=== PATIENT | male | born 1970 | race Caucasian/White ===

== ENCOUNTER 2017-05-18 11:31 | Emergency (ER) | payer SELFPAY ==
[2017-05-18] MEDS ORDERED: FLUORESCEIN STRIP 1 MG/STRIP STRIP ONE (11:55)
[2017-05-18] MEDS ORDERED: TETRACAINE 0.5% OPHTH 15 ML BOTTLE ONE (11:56)
--- NOTE | 2017-05-18 12:33 | ER NURSING DOCUMENTATION ---
Nurse's Notes [facility] Name:Tanner Lima Age:47 yrs Sex:Male :1970 Arrival Date:05/18/2017 Time:11:31 Bed2 Private MD:No PCP, Identified Diagnosis:Eye Contusion Presentation: 05/18 11:33 Acuity: NIKI 4 rh 12:02 Presenting complaint: Patient states: Pt was leaning over into the shower and poked his rh eye on the shower faucet. Transition of care: Home. Mechanism of Injury: Poked in the eye. The patient denies any loss of vision. 12:02 Method Of Arrival: Private Vehicle rh Triage Assessment: 12:03 General: Appears in no apparent distress, Behavior is cooperative. Pain: Complains of rh pain in left eye. EENT: Eyes are tearing on inner aspect of conjunctiva of left eye. Neuro: Level of Consciousness is awake, alert, obeys commands. Historical: - Allergies: No known drug Allergies; - Home Meds: 1. None - PMHx: None; - PSHx: None; - Tetanus: < 10 years. - Ebola Screening: : Patient negative for fever greater than or equal to 101.5 degrees Fahrenheit, and additional compatible Ebola Virus Disease symptoms. - Immunization history: Flu Vaccine < 1 year. - Social history: Smoking status: Patient states former smoker of tobacco. Screenin:05 Infectious Disease Risk None. Abuse screen: Denies threats or abuse. Denies injuries rh from another. Nutritional screening: No deficits noted. Assessment: 12:04 See Triage Assessment done by same RN. rh Vital Signs: 11:50 BP 124 / 84; Pulse 57; Resp 16; Temp 97.9(O); Pulse Ox 93% on R/A; Weight 77.11 kg; rh Height 5 ft. 11 in. (180.34 cm); Pain 4/10; 11:50 Body Mass Index 23.71 (77.11 kg, 180.34 cm) rh Visual Acuity: 12:07 Left Eye Visual acuity 20/20, ; Right Eye Visual acuity 20/20, ; Both Eyes Visual rh acuity 20/20; Without Lenses; ED Course: 11:32 Patient arrived in ED. ds 11:33 Triage completed. rh 11:36 No PCP, Identified is Private Physician. ds 11:39 Richardson South MD is Attending Physician. tl1 11:50 Notified ED Physician of patient's arrival and chief complaint. Dr. South notified. rh 12:02 Annmarie Coy is Primary Nurse. rh 12:05 Valuables Remains with patient Patient has correct armband on for positive rh identification. Bed in low position. 12:24 Alexandre Harris MD is Referral Physician. tl1 Administered Medications: 11:50 Drug: Tetracaine Drops 0.5 % 1 drops; Route: Ophthalmic; Site: left eye; cb 12:19 Drug: Fluorescein Strip 1 strip; {Note: ADMIN BY DR SOUTH.} Route: Ophthalmic; Site: rh left eye; Outcome: 12:25 Discharge ordered by . tl1 12:32 Discharged to home ambulatory. 12:32 Condition: improved 12:32 Discharge Assessment: Patient awake, alert and oriented x 3. No cognitive and/or functional deficits noted. Patient verbalized understanding of disposition instructions. 12:32 Discharge instructions given to patient, Instructed on discharge instructions, follow up and referral plans. 12:32 Patient left the ED. 06 13:07 Discharge F/U Call: Spoke with: patient. other: Name: pt states he is feeling much st better today. pt has no questions or concerns. Signatures: Vibha Lees, SOLE RN Keara Caal RN RN st ot, Zuleyma, Reg Reg ds Richardson South MD MD tl1 Annmarie Coy
--- NOTE | 2017-05-18 12:33 | ER PHYSICIAN DOCUMENTATION ---
Physician Documentation [facility] Name:Tanner Lima Age:47 yrs Sex:Male :1970 Arrival Date:05/18/2017 Time:11:31 Bed2 Private MD:No PCP, Identified ED GegeyuliyaRichardson Disposition: 05/18 21:00 Chart complete. tl1 Disposition: 05/18/17 12:25 Discharged to Home/Self Care. Impression: Eye Contusion. - Condition is Good. - Discharge Instructions: CONTUSION, Eye. - Prescriptions for Klondike 5- 325 mg Oral Tablet - take 1 tablet by ORAL route every 6 hours As needed; 6 tablet. Acular 0.5 % Ophthalmic Drops - instill 1 drop by OPHTHALMIC route every 6 hours into affected eye(s); 5 milliliter. Zofran 4 mg Oral Tablet - take 1-2 tablet by ORAL route every 4-6 hours As needed; 10 tablet. - Medical Reconciliation form form. - Follow up: Alexandre Harris MD; When: 1 - 2 days; Reason: Recheck today's complaints. - Problem is new. - Symptoms have improved. HPI: 11:40 This 47 yrs old Male presents to ER with complaints of Eye Pain - LEFT. tl1 11:40 The patient sustained contusion. Onset: The symptom(s)/episode began/occurred suddenly, tl1 just prior to arrival. 12:06 He bent over to rinse his hair in the shower, stiking a shower fixture with his left tl1 eye. He had a fair amount of pain, but no change in his vision.. Historical: - Allergies: No known drug Allergies; - Home Meds: 1. None - PMHx: None; - PSHx: None; - Tetanus: < 10 years. - Ebola Screening: : Patient negative for fever greater than or equal to 101.5 degrees Fahrenheit, and additional compatible Ebola Virus Disease symptoms. - Immunization history: Flu Vaccine < 1 year. - Social history: Smoking status: Patient states former smoker of tobacco. ROS: 12:08 Eyes: Positive for injury or acute deformity, pain, photophobia, Negative for blurry tl1 vision, foreign body sensation, photophobia, visual disturbance, vision loss. 12:08 All other systems are negative. Exam: 12:08 Visual Acuity: I have reviewed the nursing documentation. Visual acuity is within tl1 normal limits. 12:08 Constitutional: The patient appears in no acute distress, alert, awake, well developed, well hydrated, well groomed, well nourished. 12:08 Head/face: Exam is negative for acute changes. 12:08 Eyes: Periorbital structures: appear normal, Pupils: equal, round, and reactive to light and accomodation, Extraocular movements: no acute changes, Conjunctiva: subconjunctival hemorrhage(s), seen in the right eye, at 8 o'clock, Corneas: are normal, Sclera: no appreciated abnormality, Anterior chamber: normal, no acute changes, Lids and lashes: appear normal, Examination of the other eye reveals no obvious gross abnormality, a slit lamp exam was employed for the exam, Left teye. Vital Signs: 11:50 BP 124 / 84; Pulse 57; Resp 16; Temp 97.9(O); Pulse Ox 93% on R/A; Weight 77.11 kg; rh Height 5 ft. 11 in. (180.34 cm); Pain 4/10; 11:50 Body Mass Index 23.71 (77.11 kg, 180.34 cm) rh Visual Acuity: 12:07 Left Eye Visual acuity 20/20, ; Right Eye Visual acuity 20/20, ; Both Eyes Visual rh acuity 20/20; Without Lenses; MDM: 11:39 Patient medically screened. tl1 21:00 Differential diagnosis: Corneal abrasion of Corneal ulcer of ocular contusion, tl1 subconjunctival hemorrhage. Data reviewed: vital signs, nurses notes, and as a result, I will discharge patient. Counseling: I had a detailed discussion with the patient and/or guardian regarding: the historical points, exam findings, and any diagnostic results supporting the discharge/admit diagnosis, the need for outpatient follow up, to return to the emergency department if symptoms worsen or persist or if there are any questions or concerns that arise at home. Response to treatment: the patient's symptoms have mildly improved after treatment. Special discussion: Need for ophthalmologic appointment if he is not rapidly improving over the next couple of days.. 05/18 11:42 Order name: Visual Acuity; Complete Time: 12:19 tl1 Dispensed Medications: 11:50 Drug: Tetracaine Drops 0.5 % 1 drops; Route: Ophthalmic; Site: left eye; 12:19 Drug: Fluorescein Strip 1 strip; {Note: ADMIN BY DR JEFFERY.} Route: Ophthalmic; Site: left eye; Signatures: Vibha Lees RN RN cb Leigh, Tom, MD MD tl1 Annmarie Coy
== END 2017-05-18 12:33 | disposition home or self-care (01) ==
LOC: ER 11:31
DX: S05.12XA Contusion of eyeball and orbital tissues, left eye, initial encounter (principal); W22.8XXA Striking against or struck by other objects, initial encounter; Y92.091 Bathroom in other non-institutional residence as the place of occurrence of the external cause; Y93.E1 Activity, personal bathing and showering
CPT/HCPCS: 99283